=== PATIENT | female | born 1940 | race Caucasian/White ===

== ENCOUNTER 2017-12-13 14:11 | Inpatient (IN) | payer MEDICARE, BC ==
[~2017-12-13] VITALS: Ht 167.6 cm; Wt 156.0 kg
--- NOTE | 2017-12-13 14:19 | NUR ---
PT TO ROOM PER EMS
--- NOTE | 2017-12-13 14:45 | NUR ---
PER DAUGHTER PT HAS SHANNON CATHETAR DUE TO INCONTINECE.
--- NOTE | 2017-12-13 15:05 | NUR ---
IV INITIATED AND LABS COLLECTED. PT DENIES ANY PAIN AT THIS TIME. PER DAUGHTER PT WAS DX WITH A UTI AND STARTED ON AN UNKNOWN ANTIBIOTIC YESTERDAY WHEN THEY STARTED NOTICING BLOOD WITH CLOTS IN SHANNON BAG. ABD SOFT, NON TENDER UPON PALPATION. URINE SAMPLE COLLECTED FROM SHANNON PORT. PT AND DAUGHTER AWARE OF PLAN OF CARE AND WAIT TIME. CALL SANTA WITHIN REACH.
[2017-12-13 15:25] LABS: HEMATOCRIT 39.5 % (37.0-47.0); HEMOGLOBIN 12.7 g/dl (12.0-16.0); IMMATURE GRANULOCYTES 0.5 % (0.0-1.0); MEAN CELL VOLUME 96.3 fL CALC (80.0-100.0); MEAN CORPUSCULAR HGB CONC 32.2 g/L CALC (32.0-36.0); NEUT# 10.57 thou/uL (2.00-7.15); RED BLOOD COUNT 4.1 mill/uL (4.20-5.60); RED CELL DISTRI WIDTH 13.2 % (11.5-15.5)
[2017-12-13 15:26] LABS: URINE BILIRUBIN - DIPSTICK NEGATIVE (NEGATIVE); URINE BLOOD DIPSTICK LARGE (NEGATIVE); URINE GLUCOSE - DIPSTICK NEGATIVE (NEGATIVE); URINE KETONE NEGATIVE (NEGATIVE); URINE NITRITE - DIPSTICK NEGATIVE (Negative); URINE PROTEIN - DIPSTICK 30 mg/dL (NEG-TRACE); URINE SPECIFIC GRAVITY 1.015; URINE UROBILINOGEN - DIPSTICK 0.2 E.U./dL (0.2)
[2017-12-13 15:28] LABS: URINE CLARITY SL CLOUDY; URINE COLOR AMBER; URINE LEUK ESTERASE MODERATE (NEGATIVE)
--- NOTE | 2017-12-13 15:30 | NUR ---
PT REPOSITIONED IN BED FOR COMFORT ON RIGHT SIDE. DRESSING NOTED TO BUTTOCK AREA. DAUGHTER INFORMED THAT SHE IS BEING TREATED FOR BREAKDOWN OF SKIN.
[2017-12-13 15:33] LABS: URINE RBC >100 RBC/hpf (0-5); URINE SQUAMOUS EPITHELIAL CELL FEW EPI/hpf (0-FEW)
[2017-12-13 15:35] LABS: ALBUMIN 3.3 g/dL (3.2-5.0); BILIRUBIN, TOTAL 0.2 mg/dL (0.0-1.4); CREATININE 1.6 mg/dL (0.5-1.0); INTERNATIONAL NORMALIZED RATIO 0.9 RATIO (0.7-1.3); POTASSIUM 4.1 mmol/l (3.5-5.1); PROTHROMBIN TIME 10.4 SECONDS (9.0-12.5); TOTAL PROTEIN 6.9 g/dL (6.3-8.2)
--- NOTE | 2017-12-13 15:45 | NUR ---
SHANNON CATHETER REMOVED 650 MLS OF DARK RED URINE NOTED ON BAG. [address] SHANNON PLACED WITH NO DIFFICULTY, PT TOLERATED WELL. PT REPORTS FULLNESS AND PAIN TO THE BLADDER. SHANNON WAS HAND IRRIGATED AND 5N LARGE CLOTS REMOVED. LIGHT PINK URINE DRAINING.
--- NOTE | 2017-12-13 15:55 | NUR ---
CBI INITIATED. DRAINAGE CLEAR, NO CLOTS NOTED. PT TOLERAING WELL
[2017-12-13] MEDS ORDERED: XANAX0.5 MG PO (16:27)
[2017-12-13] MEDS ORDERED: ADULT ASPIRIN R81 MG PO (16:27)
[2017-12-13] MEDS ORDERED: KEFLEX500 MG PO (16:27)
[2017-12-13] MEDS ORDERED: ATENOLOL25 MG PO (16:28)
[2017-12-13] MEDS ORDERED: LIPITOR20 MG PO (16:28)
[2017-12-13] MEDS ORDERED: CLONIDINE0.1 MG PO (16:29)
[2017-12-13] MEDS ORDERED: BUMETANIDE0.5 MG PO (16:29)
[2017-12-13] MEDS ORDERED: LEXAPRO10 MG PO (16:30)
[2017-12-13] MEDS ORDERED: GABAPENTIN100 MG PO (16:30)
--- NOTE | 2017-12-13 16:30 | NUR ---
PT TOLERATING CBI AND HAS NO COMPLAINTS OF PAIN AT THIS TIME. PT TOLERATING PO FLUIDS. FLUIDS IN SHANNON BAG REMAIN CLEAR AT THIS TIME. FAMILY AWARE OF PENDING RESULTS AND WAIT TIME.
[2017-12-13] MEDS ORDERED: RESTORIL15 MG PO (16:31)
[2017-12-13] MEDS ORDERED: LEVEMIR100 UNIT/M SC (16:31)
[2017-12-13] MEDS ORDERED: VITAMIN B-12500 MCG PO (16:32)
[2017-12-13] MEDS ORDERED: HUMALOG100 MG/ML (16:33)
[2017-12-13] MEDS ORDERED: CYCLOBENZAPR10 MG PO (16:35)
[2017-12-13] MEDS ORDERED: VICODIN1 TA1 PO (16:36)
--- NOTE | 2017-12-13 16:45 | NUR ---
MD AT BEDSIDE TO DISCUSS RESULTS AND PLAN OF CARE.
--- NOTE | 2017-12-13 17:02 | NUR ---
REPORT CALLED TO RADHA ON MS.
--- NOTE | 2017-12-13 17:30 | NUR ---
Admission Note Report Given to: RADHA Transported by: Wheelchair X Stretcher Transported with: X Nurse X Transporter X Patent IV O2 Acute Care Physical Therapist PT TRANSPORTED TO 282 WITH CBI INFUSING.
--- NOTE | 2017-12-13 18:38 | NUR ---
REPORT RECEIVED FROM FORREST, PT ARRIVED ON UNIT @ 1735 VIA STRETCHER AND TRANSFERRED TO BED, ALER AND ORIENTED X 2, ORIENTED TO ROOM AND CALL NAHOMY SANTA. 3-WAY CATHETER IN PLACE WITH CBI IN PROGRESS, DRAINAGE CLEAR WITH NO SEDIMENTS/CLOTS. SETTLED IN BED, FAMILY IN ROOM, FED PT.
[2017-12-13 19:15] VITALS: BP 187/91
--- NOTE | 2017-12-13 19:37 | NUR ---
AT 1850 FAMILY NOTIFIED NURSE THAT PT C/O HER BLADDER FEELS FULL, ON ASSESSMENT, DRAINAGE HAD STOPPED, CATHETER WAS IRRIGATED WITH 40 ML 0.9 NS THEN BEGAN TO FLOW FREELY, THERE WERE NO CLOTS ONLY SMALL AMOUNT SEDIMENTS. PT FELT RELIEF AFTER MANUAL IRRIGATION.
--- NOTE | 2017-12-13 22:21 | NUR ---
UPON ENTERING THE PT'S ROOM SHE IS UPRIGHT IN BED VISITING WITH GAS OPERATION MANAGER WHO IS AT BEDSIDE. PT IS CONFUSED AND THINKS I AM A FRIEND VISITING HER. SHE DOES NOT SEEM TO UNDERSTAND THAT I AM HER NURSE AND THAT SHE IS IN THE HOSPITAL, SHE DEMANDED THAT I "GO NOW." I GAVE THE PT.A FEW MINUTES AND RETURNED, SHE WAS SOMEWHAT CALMER,BUT STILL WOULD NOT ALLOW ME TO LISTEN TO HER LUNGS OR ADMINISTER HER PO MEDICATIONS. I WAS ABLE TO ASSESS PT.PARTIALLY AND CHANGE CBI FLUIDS, RUNNING AND DRAINING CLEAR YELLOW URINE W/URINE OUTPUT OF 200 AT THIS TIME. IV ANTIBIOTICS WERE ADMINISTERED. I WILL RETURN AND ATTEMPT PO MEDICATIONS W/APPLESAUCE REPORTED BY GAS OPERATION MANAGER A MEANS USED AT HOME FOR MEDICATIONS. PT.IS CALMER, BUT STILL REFUSING APPLESAUCE OR PILLS AT THIS TIME. WILL CONTINUE TO ATTEMPT MEDICATION ADMINISTRATION.
--- NOTE | 2017-12-13 22:40 | NUR ---
PO MEDICATIONS ADMINISTERED VIA APPLESAUCE. CBI PATENT AND DRAINING CLEAR YELLOW.
--- NOTE | 2017-12-13 22:56 | NUR ---
PT.MEDICATED ORDERS PROVIDE. MOLD DRESSER IS AT BEDSIDE. PT.IS AWAKE,CONFUSED, BUT CALMLY TALKATIVE. LIGHTS ARE ON. CBI IS PATENT AND DRAINING CLEAR LIGHT YELLOW. NO S/S OF DISTRESS NOTED AT THIS TIME.
[2017-12-13 23:55] VITALS: BP 167/72
--- NOTE | 2017-12-14 02:25 | NUR ---
PT.IS SLEEPING W/LIGHTS LOW, PROTOZOOLOGIST IS AT BEDSIDE AWAKE AND SEWING. IV FLUIDS ARE RUNNING NS@100 AND CBI IS PATENT AND DRAINING CLEAR PALE YELLOW URINE W/600CC OF URINE OUTPUT MEASURED AT THIS TIME. CALL LIGHT AT BEDSIDE AND PROTOZOOLOGIST ENCOURAGED TO CALL IF ANY NEEDS ARISE.
[2017-12-14 04:34] VITALS: BP 148/73
--- NOTE | 2017-12-14 04:41 | NUR ---
PT.IS SLEEPING AND NURSE MIDWIFE IS AT BEDSIDE. LIGHTS ARE DOWN LOW AND TV OFF. V/S ASSESSED AND LAB IS IN W/PT FOR BLOOD DRAW, IV FLUIDS ARE RUNNING AND IV SITE APPEARS HEALTHY. CBI IS RUNNING SLOW AND DRAINING CLEAR PALE YELLOW. NO S/S OF DISTRESS NOTED, PT.IS VERY RESTFULL AT THIS TIME. NURSE MIDWIFE ENCOURAGED TO CALL IF ANY NEEDS ARISE.
[2017-12-14 05:11] LABS: HEMATOCRIT 35.9 % (37.0-47.0); HEMOGLOBIN 11.4 g/dl (12.0-16.0); MEAN CELL VOLUME 98.4 fL CALC (80.0-100.0); MEAN CORPUSCULAR HGB 31.2 pG CALC (26.0-32.0); MEAN CORPUSCULAR HGB CONC 31.8 g/L CALC (32.0-36.0); RED BLOOD COUNT 3.65 mill/uL (4.20-5.60); RED CELL DISTRI WIDTH 13.1 % (11.5-15.5)
[2017-12-14 05:20] LABS: CREATININE 1.3 mg/dL (0.5-1.0); POTASSIUM 3.5 mmol/l (3.5-5.1)
--- NOTE | 2017-12-14 07:00 | NUR ---
RECEIVED BEDSIDE REPORT FROM ADEN SCOTT. RESTING IN SEMI FOWLERS WITH EYES CLOSED, AWAKENS EASILY. CAREGIVER AT BEDSIDE. RESPS EVEN AND UNLABORED ON ROOM AIR. #22 RAC INFUSING WITHOUT DIFFICULTY, SITE APPEARS HEALTHY. CBI PATENT, DRAINING CLEAR YELLOW. DENIES PAIN OR DISCOMFORT. PLAN OF CARE DISCUSSED. SAFETY PRECAUTIONS REINFORCED. BED ALARM ON FOR SAFETY. BED IN LOWEST POSITION WITH WHEELS LOCKED. CALL LIGHT WITHIN REACH. ENCOURAGED PT TO CALL FOR ANY NEEDS.
[2017-12-14 08:11] VITALS: BP 159/57
--- NOTE | 2017-12-14 10:30 | NUR ---
FAMILY AT BEDSIDE. CBI VIA [address] WAY CATHETER CLAMPED, DRAINING CLEAR YELLOW URINE, NO CLOTS NOTED. REPOSITIONED FOR COMFORT. CALL LIGHT WITHIN REACH. WILL CONTINUE TO MONITOR.
--- NOTE | 2017-12-14 10:45 | NUR ---
DR ELLIOTT AT BEDSIDE, NEW ORDERS RECEIVED.
[2017-12-14 15:20] VITALS: BP 155/71
--- NOTE | 2017-12-14 15:33 | NUR ---
REPOSITIONED FOR COMFORT. RESPS EVEN AND UNLABORED ON ROOM AIR. #22 RAC INFUSING WITHOUT DIFFICULTY, SITE APPEARS HEALTHY. SHANNON PATENT, DRAINING CLEAR YELLOW URINE. DENIES PAIN OR DISCOMFORT. PO FLUIDS OFFERED. CALL LIGHT WITHIN REACH. WILL CONTINUE TO MONITOR.
[2017-12-14 19:10] VITALS: BP 165/60
--- NOTE | 2017-12-14 19:10 | NUR ---
BEDSIDE REPORT RECEIVED FROM SONIA SHIPLEY. PT.IS UPRIGHT IN BED W/LIGHTS ON AND DAUGHTER AT BEDSIDE. PT.REPORTS THAT SHE FEELS LIKE SHE NEEDS TO HAVE A BM AND THAT SHE "CANNOT GO ON A BEDPAN," DAUGHTER REPORTS THAT SHE GETS UP TO BEDSIDE COMMODE. MYSELF, BUCK GUPTA AND REBEL SHIPLEY PROCEED TO ATTEMPT TO ASSIST PT TO BEDSIDE COMMODE. PT.WAS UNABLE TO ASSIST IN ANY WAY, SHE DID NOT HAVE USE OF ARMS OR HANDS, SHE WAS UNABLE TO BEAR ANY WEIGHT ON RIGHT LEG AT ALL. WE WERE UNABLE TO LIFT HER TO THE BSC. WE PLACED PT.ON BEDPAN, PLACED CALL LIGHT IN HER HAND AND INSTRUCTED HER TO CALL US WHEN SHE IS FINISHED. WILL FOLLOW-UP AND MONITOR.
--- NOTE | 2017-12-14 21:40 | NUR ---
PT.MEDICATED ORDERS PROVIDE AND ASSESSEMENT COMPLETED AT THIS TIME. CERTIFIED MAINTENANCE WELDER IS AT BEDSIDE AND VERY ATTENTIVE. CERTIFIED MAINTENANCE WELDER REPORTED THAT SHE WAS ABLE TO GET PT TO BSC AND BACK TO BED AND THAT PT.HAD 1 SMALL BM. LUNG SOUNDS ARE CLEAR, ABD SOFT W/HYPOACTIVE BOWEL SOUNDS/NON-TENDER, NO NOTED EDEMA AT THIS TIME. PT IS LOC TO NAME ONLY. SHE WAS UNABLE TO TELL ME HER OR WHICH HOSPITAL SHE WAS IN. SHE GETS CONFUSED BETWEEN BEING IN THE HOSPITAL AND AT HOME. PT.REPORTS THAT HER TWO CHILDREN ARE STILL YOUNG IN THEIR EARLY 20'S/CERTIFIED MAINTENANCE WELDER AND FAMILY CONTRADICT THAT INFORMATION. PT.DOES NOT ATTEMPT TO HOLD HER OWN CUP OR FEED HERSELF. I DISCUSSED W/PT AND CERTIFIED MAINTENANCE WELDER THE IMPORTANCE OF PT.KEEPING USAGE OF HER ARMS AND HANDS FOR STRENGTH AND SELF CARE. CERTIFIED MAINTENANCE WELDER REPLIED, "SHE IS BLIND." PT.VERBALLY RESPONDED THAT SHE UNDERSTOOD AND AGREED SHE NEEDED TO ATTEMPT TO KEEP HER STRENGTH UP. PT.DENIED ANY OTHER NEEDS AND CERTIFIED MAINTENANCE WELDER PROVIDED BLANKET FOR COMFORT AND INFORMED ABOUT ROOM AC CONTROLS. WILL CONTINUE TO MONITOR, PT.AND CERTIFIED MAINTENANCE WELDER ENCOURAGED TO CALL IF ANY NEEDS ARISE.
--- NOTE | 2017-12-14 23:55 | NUR ---
BASIN OPERATOR CAME TO NURSES STATION AND REPORTED THAT IV PUMP WAS SOUNDING LOW BATTERY. UPON ENTERING ROOM, URINE IN CATHETER TUBE APPEARS RED. CHECKED FOR PATENCY, IT IS DRAINING, BUT HAS THE APPEARANCE OF BLOOD IN IT. WILL CONTINUE TO MONITOR FOR PATENCY.
--- NOTE | 2017-12-15 02:45 | NUR ---
IV FLUIDS REPLENISHED AT THIS TIME. MANPOWER DEVELOPMENT SPECIALIST AT BEDSIDE POINTED OUT SMALL BLOODY TISSUE IN SHANNON CATHETER TUBING. CATHETER ASSESSED FOR PATENCY AND DRAINAGE. CATHETER IS DRAINING CLEAR YELLOW URINE W/SEVERAL SMALL CLOTS OF BLOODY TISSUE. WILL CONTINUE TO MONITOR FOR PATENCY. PT.IS SLEEPING RESTFULLY AT THIS TIME, NO S/S OF DISTRESS NOTED. MANPOWER DEVELOPMENT SPECIALIST ENCOURAGED TO CALL IF ANY NEEDS ARISE. CALL LIGHT AT BEDSIDE.
--- NOTE | 2017-12-15 03:50 | NUR ---
PT.IS SLEEPING SOUNDLY, HOUSEHOLD REFRIGERATOR MECHANIC AWAKE AT BEDSIDE, LIGHTS LOW,TV OFF. V/S ASSESSED, 3WAY CATHETER PATENT, 1250CC OF PEACH COLORED URINE, 1 SMALL CLOT OF BLOODY TISSUE IN URINE. PT.REPOSITIONED WITH PILLOWS. PT.DENIES PO FLUIDS. HOUSEHOLD REFRIGERATOR MECHANIC LEFT AT BEDSIDE AND LIGHTS LOW.
[2017-12-15 04:20] VITALS: BP 158/68
[2017-12-15 05:09] LABS: HEMATOCRIT 33.6 % (37.0-47.0); HEMOGLOBIN 10.7 g/dl (12.0-16.0); IMMATURE GRANULOCYTES 0.4 % (0.0-1.0); MEAN CELL VOLUME 96.6 fL CALC (80.0-100.0); MEAN CORPUSCULAR HGB 30.7 pG CALC (26.0-32.0); MEAN CORPUSCULAR HGB CONC 31.8 g/L CALC (32.0-36.0); NEUT# 7.55 thou/uL (2.00-7.15); RED BLOOD COUNT 3.48 mill/uL (4.20-5.60); RED CELL DISTRI WIDTH 13.1 % (11.5-15.5)
[2017-12-15 05:25] LABS: CREATININE 1.3 mg/dL (0.5-1.0); MAGNESIUM 1.4 mg/dL (1.6-2.3); POTASSIUM 3.4 mmol/l (3.5-5.1)
--- NOTE | 2017-12-15 07:00 | NUR ---
RECEIVED BEDSIDE REPORT FROM ADEN SCOTT. RESTING IN SEMI FOWLERS WITH EYES CLOSED, AWAKENS EASILY. RESPS EVEN AND UNLABORED ON ROOM AIR. #22 RAC INFUSING WITHOUT DIFFICULTY, SITE APPEARS HEALTHY. SHANNON PATENT, DRAINING CLEAR YELLOW URINE TO GRAVITY. DENIES PAIN OR DISCOMFORT. CAREGIVER AT BEDSIDE. PLAN OF CARE DISCUSSED. SAFETY PRECAUTIONS REINFORCED. BED IN LOWEST POSITION WITH WHEELS LOCKED. CALL LIGHT WITHIN REACH. ENCOURAGED PT AND CAREGIVER TO CALL FOR ANY NEEDS.
[2017-12-15 07:48] VITALS: BP 193/76
--- NOTE | 2017-12-15 08:00 | NUR ---
RESTING IN SEMI FOWLERS, CAREGIVER AT BEDSIDE. RESPS EVEN AND UNLABORED ON ROOM AIR. #22 RAC INFUSING WITHOUT DIFFICULTY, SITE APPEARS HEALTHY. SHANNON PATENT, DRAINING PINK COLORED URINE TO GRAVITY. DENIES PAIN OR DISCOMFORT. CALL LIGHT WITHIN REACH. WILL CONITNUE TO MONITOR.
--- NOTE | 2017-12-15 09:00 | NUR ---
DRESSING TO COCCYX REMOVED, AREA CLEANSED, COVERED WITH MEPIPLEX. TOLERATED WITHOUT DIFFICUTLY.
--- NOTE | 2017-12-15 12:59 | NUR ---
TO CT IN STABLE CONDITION VIA STRETCHER ACCOMPANIED BY MARTA JANE.
--- NOTE | 2017-12-15 13:10 | NUR ---
RETURNED FROM CT VIA STRETCHER, ASSISTED TO BED WITH MAX ASSIST. DENIES PAIN OR DISCOMFORT. FAMILY AT BEDSIDE. CALL LIGHT WITHIN REACH. BED IN LOWEST POSITION WITH WHEELS LOCKED. WILL CONTINUE TO MONITOR.
--- NOTE | 2017-12-15 14:30 | NUR ---
DR MORALES AT BEDSIDE, NEW ORDERS RECEIVED.
[2017-12-15 15:28] VITALS: BP 155/78
--- NOTE | 2017-12-15 16:00 | NUR ---
RESTING IN SEMI FOWLERS WITH EYES CLOSED, AWAKENS EASILY. RESPS EVEN AND UNLABORED ON ROOM AIR. SHANNON PATENT, DRAINING YELLOW COLORED URINE TO GRAVITY. FAMILY AT BEDSIDE. CALL LIGHT WITHIN REACH. WILL CONTINUE TO MONITOR.
[2017-12-15 19:00] VITALS: BP 186/94
--- NOTE | 2017-12-15 20:50 | NUR ---
PT RESTING IN BED WITH CAREGIVER AT BEDSIDE. PT DENIES ANY PAIN. RESP EVEN AND UNLABORED. LUNGS CLEAR, DIMINISHED IN BASES. ABD SOFT; HYPOACTIVE BOWEL SOUNDS. PT REPOSITIONED FOR COMFORT. DRESSING ON COCCYX CDI. SHANNON PATENT; YELLOW URINE. LEFT AKA. PEDAL PULSE PALPATED RIGHT FOOT. IV RAC PATENT; NO REDNESS OR EDEMA NOTED. BED ALARM IN PLACE FOR SAFETY. FREQUENT ROUNDS MADE. CALL LIGHT WITHIN REACH.
[2017-12-15 21:45] VITALS: BP 175/69
--- NOTE | 2017-12-15 23:05 | NUR ---
PT YELLING OUT, STATES " IM SCARED, I NEED MY .". PT ALSO CALLING OUT FOR DAUGHTER. CAREGIVER AT BEDSIDE. PT UNABLE TO BE COMFORTED. PT DENIES ANY PAIN. DR ELLIOTT CALLED AND NOTIFIED. ALSO MADE AWARE OF VITAL SIGNS. NEW ORDER RECIEVED AT THIS TIME. SEROQUEL 25 MG PO X1 DOSE NOW. TORB.
--- NOTE | 2017-12-15 23:15 | NUR ---
PT DAUGHTER TANIA CALLED TO ASK ABOUT PT. DAUGHTER REPORTS PT HAS TIMES WHERE SHE YELLS OUT AT HOME, THAT IS WHY SHE HAS A CAREGIVER.
[2017-12-16] VITALS (8 sets, daily range): BP systolic 137–170; BP diastolic 51–71
--- NOTE | 2017-12-16 01:20 | NUR ---
PT SLEEPING WITH EYES CLOSED. RESP EVEN AND UNLABORED. IV PATENT; NO REDNESS OR EDEMA NOTED. BED ALARM IN PLACE. SHANNON PATENT. CAREGIVER AT BEDSIDE. CALL LIGHT WITHIN REACH.
--- NOTE | 2017-12-16 04:04 | NUR ---
RESP EVEN AND UNLABORED. PT SLEEPING WITH EYES CLOSED. IV PATENT; NO REDNESS OR EDEMA NOTED. SHANNON PATENT; DRAINING YELLOW URINE. BED ALARM ON. CAREGIVER AT BEDSIDE. CALL LIGHT WITHIN REACH.
--- NOTE | 2017-12-16 07:00 | NUR ---
SHIFT CHANGE REPORT FROM NAOMY SOARES RESTING IN BED WITH EYES CLOSED, SHOUTING OUT PERIODICALLY AND CALLING FOR AVERY, VERBAL CUES EFFECTIVE IN RESOLVING THIS BEHAVIOR. REFUSED LAB WORK BUT COMPLIED AFTER RN EXPLAINED REASON AND GENTLY HELD HER HAND. IVF INFUSING, SHANNON IN PLACE WITH CLEAR YELLOW URINE, CALL SANTA IN REACH, SITTER IN ROOM, WILL CONTINUE TO MONITOR.
[2017-12-16 07:12] LABS: HEMATOCRIT 33.9 % (37.0-47.0); HEMOGLOBIN 11.1 g/dl (12.0-16.0); MEAN CELL VOLUME 95.5 fL CALC (80.0-100.0); MEAN CORPUSCULAR HGB 31.3 pG CALC (26.0-32.0); MEAN CORPUSCULAR HGB CONC 32.7 g/L CALC (32.0-36.0); RED BLOOD COUNT 3.55 mill/uL (4.20-5.60); RED CELL DISTRI WIDTH 12.9 % (11.5-15.5)
[2017-12-16 07:45] LABS: CREATININE 1.4 mg/dL (0.5-1.0); POTASSIUM 3.5 mmol/l (3.5-5.1)
--- NOTE | 2017-12-16 11:06 | NUR ---
VERY LETHARGIC, COMPLETE BED BATH AND MASSAGE GIVEN, REPORITIONED FROM BACK TO LEFT SIDE, SITTER IN ROOM, CALL SANTA IN REACH.
--- NOTE | 2017-12-16 13:30 | NUR ---
PT SLEEPING, OR TEAM HERE, RECEIVED PT, TRANSFERRED HER TO STRETCHER AND OFF UNIT FOR PLANNED PROCEDURE, DAUGHTER DIXIE IN ROOM AT THIS TIME AND IS AWARE OF PLANS.
--- NOTE | 2017-12-16 16:47 | NUR ---
PT TRANSPORTED BACK TO UNIT VIA STRETCHER BY PACU STAFF, TRANSFERRED TO BED AND SETTLED IN. BEDSIDE REPORT RECEIVED FROM MATT & STAFF, PT SLEEPING SOUNDLY, RESPONDS OCCASIONALLY TO NAME, POSITIONED ON RIGHT SIDE, VITAL SIGNS BEING MEASURED AND RECORDED AT THIS TIME, IVF INFUSING, CALL SANTA IN REACH, FAMILY AT BEDSIDE.
--- NOTE | 2017-12-16 19:40 | NUR ---
PT.CALLING OUT WANTING FAMILY. COMFORTED PT LETTING HER KNOW THAT SHE IS NOT ALONE. ASSISTED HER IN DRINKING CRANBERRY JUICE/WATER AND GAVE HER A BLANKET TO HOLD ON TO FOR COMFORT. CARDIAC CATHETERIZATION TECHNICIAN JUST ARRIVED WE WERE LEAVING THE ROOM. I ORIENTED HER TO THE ROOM AND SHOWED HER THE PTS CALL LIGHT IN CASE SHE NEEDED ANY ASSISTANCE. DENIES ANY AT THIS TIME. WILL CONTINUE TO MONITOR. SHANNON CATHETER IS DRAINING CLEAR YELLOW URINE AND IV FLUIDS ARE RUNNING NS@100.
--- NOTE | 2017-12-16 20:35 | NUR ---
PT.CLEANED OF INCONTINENT SOFT/LOOSE STOOL. SHANNON CATHETER CARE PROVIDED. DRESSING TO WOUND ON COCYX REPLACED AND PICTURES PLACED IN CHART. PT.REPOSITIONED AT THIS TIME, PT.TOLERATED WELL. TEMPLATE CUTTER IS AT BEDSIDE. PT.APPEARS TO BE CALM AT THIS TIME. NO S/O AGITATION OR DISTRESS AT THIS TIME. SHANNON CATHETER IS DRAINING CLEAR YELLOW URINE.
[2017-12-17 00:15] VITALS: BP 154/68
--- NOTE | 2017-12-17 01:40 | NUR ---
PT.IS SLEEPING AT THIS TIME. NO S/S OF DISTRESS NOTED. SITTER AWAKE IN RECLINER AT BEDSIDE. TV ON LOW AND LIGHTS ARE OFF. SHANNON CATHETER IS DRAINING CLEAR YELLOW URINE AT THIS TIME. IV FLUIDS ARE RUNNING, SITE APPEARS HEALTHY
[2017-12-17 04:00] VITALS: BP 151/64
--- NOTE | 2017-12-17 04:00 | NUR ---
PT.IS SLEEPING AT THIS TIME. SITTER PROVIDED COFFEE. NO S/S OF DISTRESS NOTED. SHANNON CATH DRAINING CLEAR YELLOW URINE.
[2017-12-17 05:26] LABS: HEMATOCRIT 34.6 % (37.0-47.0); IMMATURE GRANULOCYTES 0.3 % (0.0-1.0); MEAN CELL VOLUME 97.2 fL CALC (80.0-100.0); MEAN CORPUSCULAR HGB 30.9 pG CALC (26.0-32.0); MEAN CORPUSCULAR HGB CONC 31.8 g/L CALC (32.0-36.0); NEUT# 7.22 thou/uL (2.00-7.15); RED BLOOD COUNT 3.56 mill/uL (4.20-5.60); RED CELL DISTRI WIDTH 12.7 % (11.5-15.5)
[2017-12-17 05:41] LABS: CREATININE 1.4 mg/dL (0.5-1.0); MAGNESIUM 1.9 mg/dL (1.6-2.3); POTASSIUM 3.8 mmol/l (3.5-5.1)
--- NOTE | 2017-12-17 05:44 | NUR ---
PT.MEDICATED ORDERS PROVIDE W/ANTIBIOTIC IV THERAPY. PT.WAS SLEEPING UPON ENTERING ROOM AND PROMPTLY RETURNED TO SLEEP. MOTOR WINDER IS AT BEDSIDE. LIGHTS ARE LOW.
--- NOTE | 2017-12-17 07:00 | NUR ---
RECEIVED BEDSIDE REPORT FROM ADEN SCOTT. RESTING IN SEMI FOWLERS WITH EYES CLOSED, AWAKENS EASILY. CAREGIVER AT BEDSIDE. RESPS EVEN AND UNLABORED ON ROOM AIR. SHANNON PATENT, DRAINING CLEAR YELLOW URINE TO GRAVITY. #22 RAC INFUSING WITHOUT DIFFICULTY, SITE APPEARS HEALTHY. DENIES PAIN OR DISCOMFORT. PLAN OF CARE DISCUSSED. SAFETY PRECAUTIONS REINFORCED. BED IN LOWEST POSITION WITH WHEELS LOCKED. CALL LIGHT WITHIN REACH. ENCOURAGED PT AND CAREGIVER TO CALL FOR ANY NEEDS.
[2017-12-17 08:44] VITALS: BP 161/59
[2017-12-17 11:15] VITALS: BP 177/62
--- NOTE | 2017-12-17 12:00 | NUR ---
IN HIGH FOWLERS, FAMILY AND CAREGIVER AT BEDSIDE ASSISTING WITH LUNCH. RESPS EVEN AND UNLABORED ON ROOM AIR. SHANNON PATENT, DRAINING CLEAR YELLOW URINE TO GRAVITY. #22 RAC INFUSING WITHOUT DIFFICULTY, SITE APPEARS HEALTHY. VOICES NO NEEDS AT THIS TIME. CALL LIGHT WITHIN REACH. WILL CONTINUE TO MONITOR.
--- NOTE | 2017-12-17 12:20 | NUR ---
DR ELLIOTT AT BEDSIDE, NEW ORDERS RECEIVED.
[2017-12-17] MEDS ORDERED: CIPROFLOXACN500 MG PO (12:42)
--- NOTE | 2017-12-17 13:38 | NUR ---
IV site discontinued, cath intact. No edema , no redness, voices no discomfort.
--- NOTE | 2017-12-17 13:50 | NUR ---
Discharge instructions given. Patient verbalizes understanding of same. Discharged in stable condition via Wheelchair to Home with family. All belongings sent with pt.
== END 2017-12-17 13:50 | disposition home health service (06) | DRG 669 ==
LOC: ED 14:11 → ED-I 16:21 → ED 16:31 → MS2 16:32
PROVIDERS: Emergency Medicine; Nurse Practitioner Family; ADMIT Internal Medicine; ATTEND Internal Medicine
PROC: 0T2BX0Z Change Drainage Device in Bladder, External Approach (ICD-10-PCS; 2017-12-13)
PROC: 0TBB8ZX Excision of Bladder, Via Natural or Artificial Opening Endoscopic, Diagnostic (ICD-10-PCS; principal; 2017-12-16)
PROC: 0TCB8ZZ Extirpation of Matter from Bladder, Via Natural or Artificial Opening Endoscopic (ICD-10-PCS; 2017-12-16)
DX: T83.511A Infection and inflammatory reaction due to indwelling urethral catheter, initial encounter (principal); N17.9 Acute kidney failure, unspecified; Z68.43 Body mass index [BMI] 50.0-59.9, adult; L89.152 Pressure ulcer of sacral region, stage 2; E11.40 Type 2 diabetes mellitus with diabetic neuropathy, unspecified; E11.22 Type 2 diabetes mellitus with diabetic chronic kidney disease; E86.0 Dehydration; B96.5 Pseudomonas (aeruginosa) (mallei) (pseudomallei) as the cause of diseases classified elsewhere; N39.0 Urinary tract infection, site not specified; I12.9 Hypertensive chronic kidney disease with stage 1 through stage 4 chronic kidney disease, or unspecified chronic kidney disease; N18.3 Chronic kidney disease, stage 3 (moderate); R31.0 Gross hematuria; F41.9 Anxiety disorder, unspecified; F32.9 Major depressive disorder, single episode, unspecified; H54.8 Legal blindness, as defined in USA; E87.6 Hypokalemia; E83.42 Hypomagnesemia; Y84.6 Urinary catheterization as the cause of abnormal reaction of the patient, or of later complication, without mention of misadventure at the time of the procedure; Z89.612 Acquired absence of left leg above knee; Z79.4 Long term (current) use of insulin; Z88.0 Allergy status to penicillin
CPT/HCPCS: G0378; J0692; J3475

== ENCOUNTER → 2018-04-08 | Outpatient (REF) | payer MEDICARE, BC ==
[~2018-04-08] MED LIST: ADULT ASPIRIN R81 MG PO; ATENOLOL25 MG PO; BUMETANIDE0.5 MG PO; CIPROFLOXACN500 MG PO; CLONIDINE0.1 MG PO; CYCLOBENZAPR10 MG PO; GABAPENTIN100 MG PO; HUMALOG100 MG/ML; KEFLEX500 MG PO; LEVEMIR100 UNIT/M SC; LEXAPRO10 MG PO; LIPITOR20 MG PO; RESTORIL15 MG PO; VICODIN1 TA1 PO; VITAMIN B-12500 MCG PO; XANAX0.5 MG PO
[2018-04-08 09:11] LABS: URINE BILIRUBIN - DIPSTICK NEGATIVE (NEGATIVE); URINE BLOOD DIPSTICK TRACE-INTACT (NEGATIVE); URINE COLOR YELLOW; URINE GLUCOSE - DIPSTICK NEGATIVE (NEGATIVE); URINE KETONE NEGATIVE (NEGATIVE); URINE LEUK ESTERASE LARGE (Negative); URINE NITRITE - DIPSTICK NEGATIVE (Negative); URINE PH >=9.0 (4.5-8.0); URINE PROTEIN - DIPSTICK 100 mg/dL (NEG-TRACE); URINE SPECIFIC GRAVITY <=1.005; URINE UROBILINOGEN - DIPSTICK 0.2 E.U./dL (0.2)
[2018-04-08 09:12] LABS: URINE AMORPH SEDIMENT MANY hpf (NONE-FEW); URINE BACTERIA MODERATE hpf; URINE CLARITY CLOUDY; URINE EPITHELIAL CELLS MODERATE EPI/hpf (0-FEW); URINE WBC 20-50 WBC/hpf (0-5)
== END | disposition home or self-care (01) ==
LOC: LABSPEC 08:34
PROVIDERS: ATTEND Internal Medicine
DX: N39.0 Urinary tract infection, site not specified (principal); B96.4 Proteus (mirabilis) (morganii) as the cause of diseases classified elsewhere

== ENCOUNTER → 2018-08-27 | Outpatient (REF) | payer MEDICARE, BC ==
[2018-08-27 11:33] LABS: URINE BILIRUBIN - DIPSTICK NEGATIVE (NEGATIVE); URINE BLOOD DIPSTICK NEGATIVE (NEGATIVE); URINE COLOR YELLOW; URINE GLUCOSE - DIPSTICK 100 mg/dL (NEGATIVE); URINE KETONE NEGATIVE (NEGATIVE); URINE NITRITE - DIPSTICK NEGATIVE (Negative); URINE PROTEIN - DIPSTICK NEGATIVE (NEG-TRACE); URINE UROBILINOGEN - DIPSTICK 0.2 E.U./dL (0.2)
[2018-08-27 11:39] LABS: URINE LEUK ESTERASE SMALL (NEGATIVE)
[2018-08-27 11:47] LABS: URINE AMORPH SEDIMENT FEW hpf (NONE-FEW); URINE SQUAMOUS EPITHELIAL CELL FEW EPI/hpf (0-FEW)
[2018-08-27 12:11] LABS: ALBUMIN 3.1 g/dL (3.2-5.0); BILIRUBIN, TOTAL 0.3 mg/dL (0.0-1.4); CREATININE 2.3 mg/dL (0.5-1.0); POTASSIUM 4.2 mmol/l (3.5-5.1); TOTAL PROTEIN 6.1 g/dL (6.3-8.2)
== END | disposition home or self-care (01) ==
LOC: LABSPEC 11:17
PROVIDERS: ATTEND Internal Medicine
DX: E11.9 Type 2 diabetes mellitus without complications (principal); B96.5 Pseudomonas (aeruginosa) (mallei) (pseudomallei) as the cause of diseases classified elsewhere; Z96.0 Presence of urogenital implants; N39.0 Urinary tract infection, site not specified

== ENCOUNTER → 2018-09-23 | Outpatient (REF) | payer MEDICARE, BC ==
[2018-09-23 13:51] LABS: URINE BILIRUBIN - DIPSTICK NEGATIVE (NEGATIVE); URINE BLOOD DIPSTICK MODERATE (NEGATIVE); URINE COLOR YELLOW; URINE GLUCOSE - DIPSTICK NEGATIVE (NEGATIVE); URINE KETONE NEGATIVE (NEGATIVE); URINE LEUK ESTERASE MODERATE (Negative); URINE NITRITE - DIPSTICK NEGATIVE (Negative); URINE PROTEIN - DIPSTICK 30 mg/dL (NEG-TRACE); URINE UROBILINOGEN - DIPSTICK 0.2 E.U./dL (0.2)
[2018-09-23 13:52] LABS: URINE CLARITY SL CLOUDY
[2018-09-23 13:53] LABS: URINE WBC >100 WBC/hpf (0-5)
== END | disposition home or self-care (01) ==
LOC: LABSPEC 13:35
PROVIDERS: ATTEND Internal Medicine
DX: N39.0 Urinary tract infection, site not specified (principal); B96.4 Proteus (mirabilis) (morganii) as the cause of diseases classified elsewhere

== ENCOUNTER 2019-05-27 16:30 | Inpatient (IN) | payer MEDICARE, BC ==
[~2019-05-27] VITALS: Ht 167.6 cm; Wt 74.8 kg
[2019-05-27 17:43] LABS: HEMATOCRIT 40.7 % (37.0-47.0); HEMOGLOBIN 12.8 g/dl (12.0-16.0); IMMATURE GRANULOCYTES 0.4 % (0.0-5.0); MEAN CELL VOLUME 95.1 fL CALC (80.0-100.0); MEAN CORPUSCULAR HGB 29.9 pG CALC (26.0-32.0); MEAN CORPUSCULAR HGB CONC 31.4 g/L CALC (32.0-36.0); NEUT# 10.28 thou/uL (2.00-7.15); RED BLOOD COUNT 4.28 mill/uL (4.20-5.60); RED CELL DISTRI WIDTH 12.5 % (11.5-15.5)
[2019-05-27 18:15] LABS: ALBUMIN 3.5 g/dL (3.2-5.0); POTASSIUM 3.5 mmol/l (3.5-5.1); TOTAL PROTEIN 6.8 g/dL (6.3-8.2)
[2019-05-27 18:20] LABS: BILIRUBIN, TOTAL 0.4 mg/dL (0.0-1.4)
[2019-05-27 19:20] VITALS: BP 154/80
[2019-05-27 20:37] LABS: URINE BILIRUBIN - DIPSTICK NEGATIVE (NEGATIVE); URINE BLOOD DIPSTICK SMALL (NEGATIVE); URINE COLOR YELLOW; URINE GLUCOSE - DIPSTICK NEGATIVE (NEGATIVE); URINE KETONE TRACE mg/dL (NEGATIVE); URINE NITRITE - DIPSTICK NEGATIVE (Negative); URINE PROTEIN - DIPSTICK 100 mg/dL (NEG-TRACE); URINE UROBILINOGEN - DIPSTICK 0.2 E.U./dL (0.2)
[2019-05-27 20:48] LABS: URINE LEUK ESTERASE SMALL (NEGATIVE)
[2019-05-27 21:01] LABS: URINE SQUAMOUS EPITHELIAL CELL FEW EPI/hpf (0-FEW)
[2019-05-28 03:20] VITALS: BP 143/60
[2019-05-28 06:00] LABS: POTASSIUM 3.2 mmol/l (3.5-5.1)
[2019-05-28 08:10] VITALS: BP 154/70
[2019-05-28 15:00] VITALS: BP 106/61
[2019-05-28 16:37] LABS: CREATININE 2.3 mg/dL (0.5-1.0); POTASSIUM 3.7 mmol/l (3.5-5.1)
[2019-05-28 19:15] VITALS: BP 116/56
[2019-05-29 03:45] VITALS: BP 105/55
[2019-05-29 05:41] LABS: HEMATOCRIT 37.8 % (37.0-47.0); HEMOGLOBIN 11.8 g/dl (12.0-16.0); MEAN CELL VOLUME 98.2 fL CALC (80.0-100.0); MEAN CORPUSCULAR HGB 30.6 pG CALC (26.0-32.0); MEAN CORPUSCULAR HGB CONC 31.2 g/L CALC (32.0-36.0); RED BLOOD COUNT 3.85 mill/uL (4.20-5.60); RED CELL DISTRI WIDTH 12.7 % (11.5-15.5)
[2019-05-29 07:30] VITALS: BP 128/78
[2019-05-29 10:55] VITALS: BP 145/69
[2019-05-29 15:15] VITALS: BP 120/59
[2019-05-29 19:01] VITALS: BP 118/50
[2019-05-30 04:14] VITALS: BP 117/56
[2019-05-30 07:48] VITALS: BP 116/56
[2019-05-30 11:06] VITALS: BP 138/66; BP 140/59
[2019-05-30 12:34] LABS: HEMATOCRIT 38.2 % (37.0-47.0); IMMATURE GRANULOCYTES 0.5 % (0.0-5.0); MEAN CELL VOLUME 96.7 fL CALC (80.0-100.0); MEAN CORPUSCULAR HGB 30.4 pG CALC (26.0-32.0); MEAN CORPUSCULAR HGB CONC 31.4 g/L CALC (32.0-36.0); NEUT# 7.36 thou/uL (2.00-7.15); RED BLOOD COUNT 3.95 mill/uL (4.20-5.60); RED CELL DISTRI WIDTH 12.6 % (11.5-15.5)
[2019-05-30 12:56] LABS: CREATININE 2.3 mg/dL (0.5-1.0); POTASSIUM 3.5 mmol/l (3.5-5.1)
[2019-05-30 15:44] VITALS: BP 118/60
[2019-05-30 19:18] VITALS: BP 125/69
[2019-05-31 05:41] VITALS: BP 169/70
[2019-05-31 08:22] VITALS: BP 154/75
[2019-05-31 10:20] LABS: POTASSIUM 3.4 mmol/l (3.5-5.1)
[2019-05-31 10:21] LABS: MAGNESIUM 1.3 mg/dL (1.6-2.3)
[2019-05-31 15:06] VITALS: BP 125/74
[2019-05-31 19:00] VITALS: BP 121/67
[2019-06-01 03:47] VITALS: BP 148/72
[2019-06-01 05:40] LABS: HEMATOCRIT 37.9 % (37.0-47.0); HEMOGLOBIN 11.8 g/dl (12.0-16.0); IMMATURE GRANULOCYTES 1.5 % (0.0-5.0); MEAN CELL VOLUME 96.2 fL CALC (80.0-100.0); MEAN CORPUSCULAR HGB 29.9 pG CALC (26.0-32.0); MEAN CORPUSCULAR HGB CONC 31.1 g/L CALC (32.0-36.0); NEUT# 5.74 thou/uL (2.00-7.15); RED BLOOD COUNT 3.94 mill/uL (4.20-5.60); RED CELL DISTRI WIDTH 12.6 % (11.5-15.5)
[2019-06-01 05:50] LABS: CREATININE 2.3 mg/dL (0.5-1.0); POTASSIUM 3.4 mmol/l (3.5-5.1)
[2019-06-01 05:54] LABS: MAGNESIUM 2.8 mg/dL (1.6-2.3)
[2019-06-01 14:00] VITALS: BP 140/69
== END 2019-06-01 16:28 | disposition home or self-care (01) | DRG 699 ==
LOC: MS2 16:30
PROVIDERS: Nurse Practitioner Family; ADMIT Internal Medicine; ATTEND Internal Medicine
PROC: 0T2BX0Z Change Drainage Device in Bladder, External Approach (ICD-10-PCS; principal; 2019-05-29)
DX: T83.511A Infection and inflammatory reaction due to indwelling urethral catheter, initial encounter (principal); Z16.24 Resistance to multiple antibiotics; N18.4 Chronic kidney disease, stage 4 (severe); N39.0 Urinary tract infection, site not specified; I12.9 Hypertensive chronic kidney disease with stage 1 through stage 4 chronic kidney disease, or unspecified chronic kidney disease; E11.22 Type 2 diabetes mellitus with diabetic chronic kidney disease; E11.40 Type 2 diabetes mellitus with diabetic neuropathy, unspecified; F32.9 Major depressive disorder, single episode, unspecified; F41.9 Anxiety disorder, unspecified; H54.8 Legal blindness, as defined in USA; M62.81 Muscle weakness (generalized); E87.6 Hypokalemia; E83.42 Hypomagnesemia; L89.152 Pressure ulcer of sacral region, stage 2; E86.0 Dehydration; R40.0 Somnolence; T40.2X5A Adverse effect of other opioids, initial encounter; T39.095A Adverse effect of salicylates, initial encounter; T42.4X5A Adverse effect of benzodiazepines, initial encounter; B96.5 Pseudomonas (aeruginosa) (mallei) (pseudomallei) as the cause of diseases classified elsewhere; Y84.6 Urinary catheterization as the cause of abnormal reaction of the patient, or of later complication, without mention of misadventure at the time of the procedure; Z79.4 Long term (current) use of insulin; Z87.440 Personal history of urinary (tract) infections; Z89.612 Acquired absence of left leg above knee; Z88.0 Allergy status to penicillin; Z74.01 Bed confinement status; E11.9 Type 2 diabetes mellitus without complications
CPT/HCPCS: J2185; J3475; Q3014